=== PATIENT | female | born 1985 | race Caucasian/White ===

== ENCOUNTER 2025-06-04 02:25 | Emergency (ER) | payer OTHER ==
[~2025-06-04] VITALS: Ht 165.1 cm; Wt 72.0 kg
[2025-06-04 02:50] VITALS: BP 104/64; PULSE 72; RESP 20; TEMP 98.3; O2SAT 100
[2025-06-04] MEDS: ACETAMINOPHEN 500 MG TABLET PO ONE (04:35)
[2025-06-04] MEDS: LIDOCAINE 5% TRANSDERMAL PATCH TD ONE (04:35)
[2025-06-04] MEDS ORDERED: LIDO-57 TP (05:10)
[2025-06-04] MEDS ORDERED: METH-812 PO (05:10)
== END 2025-06-04 06:15 | disposition home or self-care (01) ==
LOC: EMS 02:26
DX: M54.50 Low back pain, unspecified (principal); Z98.84 Bariatric surgery status
CPT/HCPCS: 99284; Z7502; Z7610